=== PATIENT | male | born 1950 | race Caucasian/White ===

== ENCOUNTER 2017-09-07 10:25 | Outpatient (CLI) | payer MEDICARE, OTHER ==
[2013-07-28 00:30] VITALS: BP 152/89
--- NOTE | 2017-09-07 12:49 | Diagnostic Imaging Report ---
GISELLE EUCEDA [facility] [address] [facility] [address] [address] Report Submission Date: Sep 07, 2017 11:27:53 AM CDT Patient Study Name: JEFFY CRUZ Date: Sep 07, 2017 10:58:06 AM CDT Modality Type: DX Gender: M Description: UPPER EXTREMITY : 46 Institution: [facility] Physician: GISELLE EUCEDA Examination: Plain film left hand History: PT C/O PAIN AT THE DISTAL END OF THE METACARPALS IN BOTH HANDS X 1 WEEK. PT STATES HE HAD SIMILAR PAIN IN THE HANDS 3 MONTHS AGO (Hx) Comparison exams: None available Findings: 3 views the left hand demonstrates osteopenia. Articular degenerative changes. No fracture. No dislocation. No soft tissue abnormality. Impression: Osteopenia and degenerative changes. No acute appearing osseous abnormality. Electronically signed on Sep 07, 2017 11:27:53 AM CDT by: Emmett KIM
--- NOTE | 2017-09-07 12:49 | Diagnostic Imaging Report ---
GISELLE EUCEDA [facility] [address] [facility] [address] [address] Report Submission Date: Sep 07, 2017 11:28:21 AM CDT Patient Study Name: JEFFY CRUZ Date: Sep 07, 2017 10:48:07 AM CDT Modality Type: DX Gender: M Description: UPPER EXTREMITY : 46 Institution: [facility] Physician: GISELLE EUCEDA Examination: Plain film right hand History: PT C/O PAIN AT THE DISTAL END OF THE METACARPALS IN BOTH HANDS X 1 WEEK. PT STATES HE HAD SIMILAR PAIN IN THE HANDS 3 MONTHS AGO (Hx) Comparison exams: None available Findings: 3 views the right hand demonstrates osteopenia. Articular degenerative changes. No fracture. No dislocation. No soft tissue abnormality. Impression: Osteopenia and degenerative changes. No acute appearing osseous abnormality. Electronically signed on Sep 07, 2017 11:28:21 AM CDT by: Emmett KIM
== END 2017-09-07 10:26 ==
LOC: RAD 10:25
PROVIDERS: ATTEND Family Medicine
DX: M79.641 Pain in right hand (principal); M79.642 Pain in left hand
CPT/HCPCS: 73130

== ENCOUNTER 2017-09-28 21:29 | Emergency (ER) | payer MEDICARE, OTHER ==
--- NOTE | 2017-09-28 21:55 | ED Physician Documentation ---
Ear Complaints - HISTORIAN Historian: patient - HPI Stated Complaint: Bug in ear Chief Complaint: Ear Complaints Additional Information: Feels bug in left ear. Noticed just prior to coming to ER. No treatment attempted. - ROS CONST: no problems - PAST HX Past History: other (hearing aid) Allergies/Adverse Reactions: Allergies Allergy/AdvReac Type Severity Reaction Status Date / Time oxycodone [Oxycodone] Allergy Itchy Skin Verified 09/28/17 21:59 Home Medications: Ambulatory Orders Medication Instructions Recorded Alfuzosin HCl [Uroxatral] 10 mg PO D 07/28/13 B Cmplx 4/Vit D3/C/Folic/Zinc 1 tab PO D 07/28/13 [Vital-D Rx Tablet] Bupropion HCl [Wellbutrin Xl] 300 mg PO D 07/28/13 HYDROcodone /APAP 5/325 [Vicodin 1 tab PO PRN PRN 07/28/13 5/325] Lubiprostone [Amitiza] 8 mcg PO DAILY 07/28/13 - SOCIAL HX Smoking History: non-smoker - FAMILY HX Family History: No - VITAL SIGNS Vital Signs: Vital Signs Temp Pulse Resp BP Pulse Ox 152/89 07/28/13 01:26 - REVIEWED ASSESSMENTS Nursing Assessment Reviewed: Yes Vitals Reviewed: Yes Progress - Progress Progress: Ear flushed with warm water per RN with return < 2mm in length black bug. 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 Bug not visualized. ) Mouth/Throat: lips nml Head/Neck: atraumatic Eye: eyes nml inspection Resp/CVS: no resp. distress Neuro/Psych: mood/affect nml Discharge Clincal Impression: Foreign body in left ear Qualifiers: Encounter type: initial encounter Qualified Code(s): T16.2XXA - Foreign body in left ear, initial encounter Referrals: Basilio Monique MD [Primary Care Provider] - 2 Days Condition: Good Disposition: 01 HOME, SELF-CARE Decision to Admit: NO Decision Time: 22:05
[2017-09-28 21:59] VITALS: BP 161/100
== END 2017-09-28 22:10 | disposition home or self-care (01) ==
LOC: ED 21:29
DX: T16.2XXA Foreign body in left ear, initial encounter (principal); X58.XXXA Exposure to other specified factors, initial encounter; Y92.9 Unspecified place or not applicable; Y93.9 Activity, unspecified; Y99.9 Unspecified external cause status
CPT/HCPCS: 99282

== ENCOUNTER 2018-08-12 22:32 | Emergency (ER) | payer MEDICARE, OTHER ==
--- NOTE | 2018-08-12 22:45 | ED Physician Documentation ---
Foot Injury - HISTORIAN Historian: patient - HPI Chief Complaint: Foot Injury (4th toe (left foot)) Additional Information: Patient is a 68-year-old male that presents to the ER with c/o left 4th toe injury. States that he stubbed his toe approximately one hour ago on a chair. Onset: hours (one hour ago) Where: home Severity: mild Context: other (stubbed toe on chair) Associated Symptoms:: snapping sensation Modifying Factors:: pain on movement Further Comments: no - ROS CONST: no problems CVS/RESP: none NEURO: denies: headache GI/: denies: nausea, vomiting MS/SKIN/LYMPH: foot swelling (left foot discomfort) - PAST HX Past History: other (HTN, thyroid, depression, GERD, HLD) Immunizations: UTD Allergies/Adverse Reactions: Allergies Allergy/AdvReac Type Severity Reaction Status Date / Time oxycodone [Oxycodone] Allergy Itchy Skin Verified 09/28/17 21:59 Home Medications: Ambulatory Orders Medication Instructions Recorded Alfuzosin HCl [Uroxatral] 10 mg PO D 07/28/13 B Cmplx 4/Vit D3/C/Folic/Zinc 1 tab PO D 07/28/13 [Vital-D Rx Tablet] Bupropion HCl [Wellbutrin Xl] 300 mg PO D 07/28/13 HYDROcodone /APAP 5/325 [Vicodin 1 tab PO PRN PRN 07/28/13 5/325] Lubiprostone [Amitiza] 8 mcg PO DAILY 07/28/13 - SOCIAL HX Smoking History: non-smoker Alcohol Use: none Drug Use: none - FAMILY HX Family History: none - VITAL SIGNS Vital Signs: Vital Signs Temp Pulse Resp BP Pulse Ox 161/100 09/28/17 22:12 ED Results Lab/Radiology - Orders Orders: ED Orders Category Date Time Status FOOT 3 VIEWS OR MORE [RAD] Stat Exams 08/12/18 Ordered Foot Injury Physical Exam - Physical Exam General Appearance: no acute distress, alert Foot: left foot: normal range of motion, bone tenderness, pain Ankle: bilateral: non-tender, normal inspection, normal range of motion, no evidence of injury Gait: normal Neuro: sensation nml, motor nml Vascular: no vascular compromise Tendons: tendon function nml Leg/Knee/Thigh: uninjured above ankle Skin: intact, warm Head/ENT: nml inspection Neck/Back: nml inspection Resp/CVS: breath sounds nml, heart sounds nml Discharge Clincal Impression: Toe fracture, left Clincal Impression: (Ruled Out): Injury of toe on left foot Referrals: Basilio Monique MD [Primary Care Provider] - 2 Days Additional Instructions: Left 4th toe injury with fracture Blake tape to the next toe Post op shoe Ice, Elevate Alternate Tylenol and Ibuprofen for discomfort Follow up with PCP as needed Condition: Good Disposition: 01 HOME, SELF-CARE Decision to Admit: NO Decision Time: 23:02
[2018-08-12 22:57] VITALS: BP 171/95
--- NOTE | 2018-08-13 05:43 | Diagnostic Imaging Report ---
AMNA GUAJARDO [facility] [address] [facility].[address] [address] Report Submission Date: Aug 12, 2018 11:08:07 PM CDT Patient Study Name: JEFFY CRUZ Date: Aug 12, 2018 10:46:08 PM CDT Modality Type: DX Gender: M Description: FOOT 3 VIEWS OR MORE : 46 Institution: [facility] Physician: AMNA GUAJARDO Left foot three views History: 4th toe pain and injury. Findings: A nondisplaced oblique fracture extends from the mid 4th proximal phalangeal shaft into the proximal phalangeal head. The remaining left foot is intact. Electronically signed on Aug 12, 2018 11:08:07 PM CDT by: Prasanna KIM
== END 2018-08-12 23:20 | disposition home or self-care (01) ==
LOC: ED 22:32
DX: S92.515A Nondisplaced fracture of proximal phalanx of left lesser toe(s), initial encounter for closed fracture (principal); W22.03XA Walked into furniture, initial encounter; Y93.01 Activity, walking, marching and hiking; Y92.009 Unspecified place in unspecified non-institutional (private) residence as the place of occurrence of the external cause
CPT/HCPCS: 73630; 99282; 99283